=== PATIENT | female | born 1935 | race Caucasian/White ===

== ENCOUNTER 2021-06-29 15:31 | Inpatient (IN) | payer MEDICARE ==
[~2021-06-29] VITALS: Ht 142.2 cm; Wt 46.5 kg
[2021-06-29] MEDS ORDERED: ASPIRIN 81 MG CHEW (CHILDREN'S ASA) PO ONE (15:45)
--- NOTE | 2021-06-29 15:46 | ED Cardiac General ---
History of Present Illness General Stated Complaint: SENT OVER BY DR AGUIAR Source: patient Exam Limitations: no limitations History of Present Illness Date Seen by Provider: Jun 29, 2021 Time Seen by Provider: 15:43 Initial Comments To ER by private vehicle from Dr. Aguiar office. Patient saw [facility] 1 week ago and was noted to have an increasingly audible murmur. She was referred to Dr. Aguiar who evaluated her today and she was found to be in a complete heart block. She has no symptoms, she states she feels well no chest pain no shortness of breath and no fatigue. Her only medications are lisinopril 10 mg daily and baby aspirin. Timing/Duration: changing over time Severity: moderate Activities at Onset: none NTG SL SPRINKLER INSPECTOR: No ASA po SPRINKLER INSPECTOR: No Associated Systoms: No Chest Pain Allergies and Home Medications Allergies Coded Allergies: No Known Drug Allergies (Unverified , 06/10/16) Patient Home Medication List Home Medication List Reviewed: Yes Review of Systems Review of Systems Constitutional: see HPI EENTM: No Symptoms Reported Respiratory: No Symptoms Reported Cardiovascular: See HPI Gastrointestinal: No Symptoms Reported Genitourinary: No Symptoms Reported Musculoskeletal: no symptoms reported Skin: no symptoms reported Psychiatric/Neurological: No Symptoms Reported Endocrine: No Symptoms Reported Hematologic/Lymphatic: No Symptoms Reported Past Jvcdlsv-Aioylv-Zlvqsv Hx Seasonal Allergies Seasonal Allergies: No Past Medical History Reproductive Disorders: No Sexually Transmitted Disease: No Family Medical History No Pertinent Family Hx Physical Exam Vital Signs Vital Signs - First Documented 06/29/21 15:31 Temp 36.2 Pulse 41 Resp 16 B/P (MAP) 169/83 (111) Pulse Ox 97 O2 Delivery Room Air Capillary Refill : Height, Weight, BMI Height: 5'0.00" Weight: 86lbs. 10.0oz. 39.258579rr; 18.6 BMI Method:Stated General Appearance: No Apparent Distress, WD/WN, Thin, Other (Alert and oriented GCS 15 no distress. Heart rate 41 with a complete AV block. BP 169/83) Neck: Full Range of Motion, Normal Inspection Respiratory: No Accessory Muscle Use, No Respiratory Distress Cardiovascular: Normal Peripheral Pulses, Bradycardia, Systolic Murmur, Irregularly Irregular Gastrointestinal: Normal Bowel Sounds, Non Tender, Soft Extremity: Normal Capillary Refill, Normal Inspection Neurologic/Psychiatric: Alert, Oriented x3 Skin: Normal Color, Warm/Dry Progress/Results/Core Measures Results/Orders Lab Results Laboratory Tests Test 06/29/21 15:48 Range/Units White Blood Count 6.2 4.3-11.0 10^3/uL Red Blood Count 4.51 3.80-5.11 10^6/uL Hemoglobin 14.6 11.5-16.0 g/dL Hematocrit 44 35-52 % Mean Corpuscular Volume 98 80-99 fL Mean Corpuscular Hemoglobin 32 25-34 pg Mean Corpuscular Hemoglobin Concent 33 32-36 g/dL Red Cell Distribution Width 13.3 10.0-14.5 % Platelet Count 188 130-400 10^3/uL Mean Platelet Volume 11.0 9.0-12.2 fL Immature Granulocyte % (Auto) 0 % Neutrophils (%) (Auto) 65 42-75 % Lymphocytes (%) (Auto) 20 12-44 % Monocytes (%) (Auto) 11 0-12 % Eosinophils (%) (Auto) 4 0-10 % Basophils (%) (Auto) 0 0-10 % Neutrophils # (Auto) 4.1 1.8-7.8 10^3/uL Lymphocytes # (Auto) 1.2 1.0-4.0 10^3/uL Monocytes # (Auto) 0.7 0.0-1.0 10^3/uL Eosinophils # (Auto) 0.2 0.0-0.3 10^3/uL Basophils # (Auto) 0.0 0.0-0.1 10^3/uL Immature Granulocyte # (Auto) 0.0 0.0-0.1 10^3/uL Prothrombin Time 13.8 12.2-14.7 SEC INR Comment 1.0 0.8-1.4 Activated Partial Thromboplast Time 28 24-35 SEC Sodium Level 144 135-145 MMOL/L Potassium Level 4.1 3.6-5.0 MMOL/L Chloride Level 107 98-107 MMOL/L Carbon Dioxide Level 23 21-32 MMOL/L Anion Gap 14 5-14 MMOL/L Blood Urea Nitrogen 18 7-18 MG/DL Creatinine 1.22 0.60-1.30 MG/DL Estimat Glomerular Filtration Rate 42 BUN/Creatinine Ratio 15 Glucose Level 108 H 70-105 MG/DL Calcium Level 9.4 8.5-10.1 MG/DL Corrected Calcium 9.2 8.5-10.1 MG/DL Magnesium Level 2.0 1.6-2.4 MG/DL Total Bilirubin 0.9 0.1-1.0 MG/DL Aspartate Amino Transf (AST/SGOT) 21 5-34 U/L Alanine Aminotransferase (ALT/SGPT) 16 0-55 U/L Alkaline Phosphatase 70 40-136 U/L Myoglobin 57.6 10.0-92.0 NG/ML Troponin I < 0.028 <0.028 NG/ML Total Protein 7.1 6.4-8.2 GM/DL Albumin 4.2 3.2-4.5 GM/DL My Orders Orders - LIANA SALAS APRN Chest 1 View, Ap/Pa Only (06/29/21 15:33) Ekg Tracing (06/29/21 15:33) Aspirin Chewable Tablet (Baby Aspirin Ch (06/29/21 15:45) Cbc With Automated Diff (06/29/21 15:33) Magnesium (06/29/21 15:33) Comprehensive Metabolic Panel (06/29/21 15:33) Myoglobin Serum (06/29/21 15:33) Protime With Inr (06/29/21 15:33) Partial Thromboplastin Time (06/29/21 15:33) O2 (06/29/21 15:33) Monitor-Rhythm Ecg Trace Only (06/29/21 15:33) Lipid Panel (06/30/21 06:00) Ed Iv/Invasive Line Start (06/29/21 15:33) Troponin I (06/29/21 15:48) Medications Given in ED Current Medications Medications Dose Ordered Sig/Isak Route Start Time Stop Time Status Last Admin Dose Admin Aspirin 324 mg ONCE ONCE PO 06/29/21 15:45 06/29/21 15:46 DC 06/29/21 15:52 324 MG Vital Signs/I&O 06/29/21 15:31 Temp 36.2 Pulse 41 Resp 16 B/P (MAP) 169/83 (111) Pulse Ox 97 O2 Delivery Room Air Departure Communication (Admissions) Family Conversation 1645-complete heart block though she is hemodynamically stable mentating well with a pressure of 140s over 60s. No chest pain. Discussed with Dr. Aguiar will admit to his service ICU plan for pacemaker placement tomorrow with Dr. Wong. We will have her n.p.o. after midnight NAME: JOSEPH GABRIEL [facility] REC#: [id number] PT STATUS: REG ER : 1935 PHYSICIAN: LIANA SALAS APRN ADMIT DATE: 06/29/21/ER Draft Date of Exam:06/29/21 CHEST 1 VIEW, AP/PA ONLY INDICATION: Chest pain. COMPARISON: 06/11/2016. FINDINGS: There is cardiomegaly. Air trapping is seen bilaterally. There is no pneumothorax or consolidation. IMPRESSION: Cardiomegaly with background emphysema. No definite acute abnormality or adverse change is identified. Dictated on workstation # [id number] Dict: 06/29/21 1610 Trans: 06/29/21 1613 [id number] Interpreted by: THERESE MCNEIL MD Electronically signed by: Impression Primary Impression: Heart block AV complete Disposition: ADMITTED INPATIENT Condition: Stable Admissions Decision to Admit Reason: Admit from ER (General) Decision to Admit/Date: Jun 29, 2021 Time/Decision to Admit Time: 15:48 Departure-Patient Inst. Referrals: NO,LOCAL PHYSICIAN (PCP/Family) Primary Care Physician LIANA SALAS APRN Jun 29, 2021 15:46
[2021-06-29] MEDS ORDERED: LISI10TA25 PO (15:50)
[2021-06-29 16:06] LABS: BASOPHILS % (AUTO) 0 % (0-10); EOSINOPHILS # (AUTO) 0.2 10^3/uL (0.0-0.3); EOSINOPHILS % (AUTO) 4 % (0-10); HEMATOCRIT 44 % (35-52); HEMOGLOBIN 14.6 g/dL (11.5-16.0); LYMPHOCYTES # (AUTO) 1.2 10^3/uL (1.0-4.0); LYMPHOCYTES % (AUTO) 20 % (12-44); MEAN CORPUSCULAR HEMOGLOBIN 32 pg (25-34); MEAN CORPUSCULAR HGB CONC 33 g/dL (32-36); MEAN CORPUSCULAR VOLUME 98 fL (80-99); MONOCYTES # (AUTO) 0.7 10^3/uL (0.0-1.0); MONOCYTES % (AUTO) 11 % (0-12); NEUTROPHILS # (AUTO) 4.1 10^3/uL (1.8-7.8); NEUTROPHILS % (AUTO) 65 % (42-75); PLATELET COUNT 188 10^3/uL (130-400); WHITE BLOOD COUNT 6.2 10^3/uL (4.3-11.0)
[2021-06-29 16:11] LABS: ALBUMIN 4.2 GM/DL (3.2-4.5)
[2021-06-29 16:12] LABS: CHLORIDE 107 MMOL/L (98-107); POTASSIUM 4.1 MMOL/L (3.6-5.0); SODIUM 144 MMOL/L (135-145)
[2021-06-29 16:13] LABS: CALCIUM 9.4 MG/DL (8.5-10.1)
--- NOTE | 2021-06-29 16:13 | Diagnostic Imaging Report ---
INDICATION: Chest pain. COMPARISON: 06/11/2016. FINDINGS: There is cardiomegaly. Air trapping is seen bilaterally. There is no pneumothorax or consolidation. IMPRESSION: Cardiomegaly with background emphysema. No definite acute abnormality or adverse change is identified. Dictated by: Dictated on workstation # [id number]
[2021-06-29 16:14] LABS: GLUCOSE 108 MG/DL (70-105); TOTAL PROTEIN 7.1 GM/DL (6.4-8.2)
[2021-06-29 16:15] LABS: CARBON DIOXIDE 23 MMOL/L (21-32)
[2021-06-29 16:16] LABS: BILIRUBIN,TOTAL 0.9 MG/DL (0.1-1.0); PROTHROMBIN TIME PATIENT 13.8 SEC (12.2-14.7)
[2021-06-29 16:17] LABS: ALKALINE PHOSPHATASE 70 U/L (40-136)
[2021-06-29 16:18] LABS: CREATININE SERUM 1.22 MG/DL (0.60-1.30); GFR ESTIMATED 42
[2021-06-29 16:19] LABS: BUN/CREATININE RATIO 15
[2021-06-29 16:20] LABS: ALANINE AMINOTRANSFERASE 16 U/L (0-55)
--- NOTE | 2021-06-29 17:20 | History & Physicial ---
History of Present Illness History of Present Illness Reason for visit/HPI She is a pleasant 85-year-old female with history of hypertension and aortic stenosis. She recently saw her primary provider for a routine follow-up visit and they felt her heart murmur was louder. As such, she was referred to my office for further evaluation. I just saw her in the office today and as part of an outpatient cardiology consultation, she underwent an electrocardiogram. This showed sinus rhythm with an atrial rate of approximately 80 bpm with complete heart block with a ventricular rate of approximately 40 bpm. As such, I sent her to the emergency room for further evaluation and for admission to undergo permanent pacemaker implantation tomorrow. She denies any significant cardiac complaints. Specifically, she denies chest discomfort, dyspnea, paro xysmal nocturnal dyspnea, orthopnea, palpitations, lightheadedness, syncope, or ankle edema. Just the other day she helped her twin sister mow their lawn. They use a push mower and this takes about 30 minutes to complete. She did not have any cardiac symptoms while doing this. She is a lifelong non-smoker. Date of Admission Jun 29, 2021 at 16:53 Date Seen by a Provider: Jun 29, 2021 Time Seen by a Provider: 17:14 I consulted on this patient on 06/29/21 17:14 Attending Physician Humberto Aguiar Jr, MD Admitting Physician No,Local Physician Consult Allergies and Home Medications Allergies Coded Allergies: No Known Drug Allergies (Unverified , 06/10/16) Patient Home Medication List Home Medication List Reviewed: Yes Past Sghvqbq-Xkemzw-Vyadhl Hx Patient Social History Employed/Student: retired Smoking Status: Never a Smoker Recent Hopitalizations: No Alcohol Use?: No Seasonal Allergies Seasonal Allergies: No Reproductive System Hx Reproductive Disorders: No Sexually Transmitted Disease: No Family Medical History Significant Family History: No Pertinent Family Hx Review of Systems Constitutional: no symptoms reported, see HPI Review of 10 organ systems is as per the history of present illness, otherwise negative. Physical Exam Vital Signs Vital Signs - First Documented 06/29/21 15:31 Temp 36.2 Pulse 41 Resp 16 B/P (MAP) 169/83 (111) Pulse Ox 97 O2 Delivery Room Air Capillary Refill : Less Than 3 Seconds Height, Weight, BMI Height: 5'0.00" Weight: 86lbs. 10.0oz. 39.252829oe; 20.00 BMI Method:Stated General Appearance: No Apparent Distress HEENT: Normal ENT Inspection Neck: Normal Inspection Respiratory: Lungs Clear Cardiovascular: Bradycardia, Systolic Murmur Gastrointestinal: Normal Bowel Sounds Rectal: Deferred Neurologic/Psychiatric: Alert, Oriented x3 Skin: Normal Color Comments General: Alert. No acute distress. Well nourished and appears stated age. Eye: Extraocular movements are intact. Conjunctivae are clear. There are no xanthelasma. HENT: Normocephalic. Atraumatic. Carotid pulsations 2/2 with bilateral radiated murmur. Neck: Jugular venous pressure does not appear elevated. No thyromegaly appreciated. Respiratory: Lungs are clear to auscultation. Respirations are non-labored. Breath sounds are equal. Symmetrical chest wall expansion. Cardiovascular: Rate of cardia. Regular rhythm. 3/6 systolic ejection murmur. No gallop. Point of maximal impulse is not appear displaced. Good pulses equal in all extremities. No edema. Gastrointestinal: Soft. Normal bowel sounds. Skin: Skin turgor is normal. There is no pallor. Musculoskeletal: No kyphosis or scoliosis appreciated. Neurologic: Alert and oriented to person, place, time. Cranial nerves 3-12 appear grossly intact. The patient has good motor tone strength in the upper and lower extremities bilaterally. Psychiatric: Cooperative. Appropriate mood & affect. Assessment/Plan Assessment and Plan Problems: (1) Heart block AV complete Status: Acute Assessment & Plan: She is in complete heart block of unknown duration. I suspect this may have been going on for a while. Despite this, this is an unstable rhythm. As such, I recommend permanent pacemaker implantation. This will be performed by my partner, Dr. Nj, early tomorrow afternoon. (2) Aortic stenosis Assessment & Plan: She had moderate aortic stenosis by echocardiogram in 2016. This is most likely progressed. I will obtain a follow-up echocardiogram in the morning. (3) Primary hypertension Assessment & Plan: Resume lisinopril. Admission Diagnosis Complete, third-degree AV heart block. Admission Status: Inpatient Order (span 2 midnights) Reason for Inpatient Admission: Complete heart block requiring permanent pacemaker implantation. Clinical Quality Measures AMI/AHF: ASA po Prior to arrival: No HUMBERTO AGUIAR JR, MD Jun 29, 2021 17:20
[2021-06-29 17:30] VITALS: BP 144/74
[2021-06-29] MEDS ORDERED: ACETAMINOPHEN 325 MG TABLET PO PRN (17:30)
--- NOTE | 2021-06-29 17:36 | Tele-ICU Consult ---
History of Present Illness History of Present Illness Date Seen by Provider: Jun 29, 2021 Time Seen by Provider: 17:00 Date of Admission This virtual visit was conducted using real time audio/video. Thank you for asking us to see this patient for Critical Care services. HPC: Recent events: Admitted through ER withh asymptomatic CHB. PMH: HTN SH: smoking history: N FH: Non-contributory ROS: negative PE: Thin, undistressed, conversational. VSS HR 40 CHB BP 169/83 RR 16 O2 sat 94- 97% on RA HEENT: No obvious masses, adenopathy or JVD. Chest: clear to auscultation. CV: Irreg S1 S2 murmur: systolic. Abd: Non-tender. Bowel sounds Y. : Unremarkable. Hinojosa N. SALES LEAD/psychiatric: Alert and oriented, grossly intact. No obvious focal findings. Extremities: No edema. Capillary refill < 3 seconds. Skin: unremarkable. Results: labs unremarkable. CXR clear. A/P: CHB: per Cards. Monitor in ICU for now. Available chart/ vitals / labs / Images reviewed. Video assessment done using teleICU camera, rest of exam as per RN. Critical Care: critically ill patient. Monitor BP Discussed with RN Aracelis. Asked RN to reach out to eICU if any questions or concerns later. Time spent with patient/coordination of care with other health professionals (mins): 15 Allergies and Home Medications Allergies Coded Allergies: No Known Drug Allergies (Unverified , 06/10/16) Past Medical/Social/Family Hx Patient Social History Tobacco Use?: No Smoking Status: Never a Smoker Substance use?: No Alcohol Use?: No Current Status Advance Directives: No Primary Language: Australian Preferred Spoken Language: Australian Review of Systems Constitutional: no symptoms reported (See free text.) EENTM: see HPI Respiratory: see HPI Cardiovascular: see HPI Gastrointestinal: see HPI Genitourinary: see HPI Musculoskeletal: see HPI Skin: see HPI Psychiatric/Neurological: See HPI All Other Systems Reviewed Negative Unless Noted: Yes Sepsis Event Evaluation Height, Weight, BMI Height: 5'0.00" Weight: 86lbs. 10.0oz. 39.552959mu; 20.00 BMI Method:Stated Exam Exam Patient acknowledged, consented, and participated in this virtual visit which was conducted using real time audio/video Vital Signs Date Time Temp Pulse Resp B/P (MAP) Pulse Ox O2 Delivery O2 Flow Rate FiO2 06/29/21 15:31 36.2 41 16 169/83 (111) 97 Room Air Height & Weight Height: 5'0.00" Weight: 86lbs. 10.0oz. 39.818042rz; 20.00 BMI Method:Stated General Appearance: No Apparent Distress, WD/WN, Thin, Other (Alert and oriented GCS 15 no distress. Heart rate 41 with a complete AV block. BP 169/83) Neck: Full Range of Motion, Normal Inspection Respiratory: No Accessory Muscle Use, No Respiratory Distress Cardiovascular: Normal Peripheral Pulses, Bradycardia, Systolic Murmur, Irregularly Irregular Capillary Refill: Less Than 3 Seconds Peripheral Pulses: 1+ Dorsalis Pedis (R) (see free text.), 1+ Left Dors-Pedis (L) Extremity: Normal Capillary Refill, Normal Inspection Neurologic/Psychiatric: Alert, Oriented x3 Skin: Normal Color, Warm/Dry Results Lab Laboratory Tests 06/29/21 15:48 Assessment/Plan Assessment/Plan See free text Critical Care: Critically Ill Patient Time spent on discussion(mins): 0 COLLEEN RODRIGUEZ MD Jun 29, 2021 17:36
[2021-06-29] MEDS: LACTATED RINGERS 1,000 ML IV SCH (18:52)
[2021-06-30 03:53] LABS: TRIGLYCERIDES 65 MG/DL (<150); VLDL CHOLESTEROL 13 MG/DL (5-40)
[2021-06-30 03:58] LABS: CHOLESTEROL 157 MG/DL (< 200); HDL CHOLESTEROL 45 MG/DL (40-60)
[2021-06-30 04:39] LABS: POTASSIUM 4.2 MMOL/L (3.6-5.0)
[2021-06-30 04:40] LABS: CALCIUM 8.5 MG/DL (8.5-10.1)
[2021-06-30 04:44] LABS: CREATININE SERUM 1.17 MG/DL (0.60-1.30); PHOSPHORUS 3.4 MG/DL (2.3-4.7)
[2021-06-30 04:46] LABS: BASOPHILS % (AUTO) 0 % (0-10); EOSINOPHILS # (AUTO) 0.2 10^3/uL (0.0-0.3); EOSINOPHILS % (AUTO) 4 % (0-10); HEMATOCRIT 41 % (35-52); HEMOGLOBIN 13.3 g/dL (11.5-16.0); LYMPHOCYTES # (AUTO) 0.9 10^3/uL (1.0-4.0); LYMPHOCYTES % (AUTO) 19 % (12-44); MEAN CORPUSCULAR HEMOGLOBIN 33 pg (25-34); MEAN CORPUSCULAR HGB CONC 33 g/dL (32-36); MEAN CORPUSCULAR VOLUME 102 fL (80-99); MEAN PLATELET VOLUME 11.5 fL (9.0-12.2); MONOCYTES # (AUTO) 0.6 10^3/uL (0.0-1.0); MONOCYTES % (AUTO) 12 % (0-12); NEUTROPHILS % (AUTO) 64 % (42-75); PLATELET COUNT 145 10^3/uL (130-400); WHITE BLOOD COUNT 4.7 10^3/uL (4.3-11.0)
[2021-06-30 04:47] LABS: MAGNESIUM 1.9 MG/DL (1.6-2.4)
[2021-06-30] MEDS ORDERED: POTASSIUM CL 10MEQ/50ML IVPB 50 ML IV SCH (06:00)
[2021-06-30] MEDS: KCL 20 MEQ TAB (K-DUR) PO SCH (06:03)
[2021-06-30] MEDS: MAGNESIUM 1 GM/100 ML IVPB 100 ML IV SCH (06:03)
[2021-06-30] MEDS: ASPIRIN E.C. 81 MG (ECOTRIN) TAB PO SCH (08:38)
[2021-06-30] MEDS: lisINopril 10 MG (PRINIVIL) TABLET PO SCH (08:38)
[2021-06-30] MEDS ORDERED: BETA1TAB15 PO (09:43)
[2021-06-30] MEDS ORDERED: ASPI-1238 PO (09:43)
--- NOTE | 2021-06-30 10:29 | Tele-ICU Progress Note ---
Subjective Date Seen by a Provider: Jun 30, 2021 Time Seen by a Provider: 10:15 Subjective/Events-last exam This virtual visit was conducted using real time audio/video. Thank you for asking us to see this patient for Critical Care services. HPC: Recent events: Admitted through ER with asymptomatic CHB, no problems overnight.. PMH: HTN, Ao sten. SH: smoking history: N FH: Non-contributory ROS: negative PE: Thin, undistressed, conversational. VSS HR 30-40 CHB HEENT: No obvious masses, adenopathy or JVD. Chest: clear to auscultation. CV: Irreg S1 S2 murmur: systolic. Abd: Non-tender. Bowel sounds Y. : Unremarkable. Hinojosa N. TUBING MACHINE OPERATOR/psychiatric: Alert and oriented, grossly intact. No obvious focal findings. Extremities: No edema. Capillary refill < 3 seconds. Skin: unremarkable. Results: labs unremarkable. CXR clear. A/P: CHB: per Cards. Monitor in ICU for now. Pacemaker this PM. Available chart/ vitals / labs / Images reviewed. Video assessment done using teleICU camera, rest of exam as per RN. Critical Care:Monitor BP. Discussed with STEVIE Galvan. Asked RN to reach out to eICU if any questions or concerns later. Time spent with patient/coordination of care with other health professionals (mins): 10 Sepsis Event Evaluation Height, Weight, BMI Height: 5'0.00" Weight: 86lbs. 10.0oz. 39.328354cz; 20.67 BMI Method:Stated Exam Exam Patient acknowledged, consented, and participated in this virtual visit which was conducted using real time audio/video Vital Signs Date Time Temp Pulse Resp B/P (MAP) Pulse Ox O2 Delivery O2 Flow Rate FiO2 06/30/21 09:00 40 24 145/58 (87) 95 Room Air 06/30/21 08:22 97 Room Air 06/30/21 08:00 38 31 96 Room Air 06/30/21 07:15 36.6 37 24 148/62 (90) 96 Room Air 06/30/21 07:00 37 06/30/21 06:00 35 19 148/61 (90) 94 Room Air 06/30/21 05:00 36 20 97 Room Air 06/30/21 04:00 33 15 143/58 (86) 92 Room Air 06/30/21 04:00 36.3 06/30/21 04:00 97 Room Air 06/30/21 03:00 37 16 130/63 (85) 95 Room Air 06/30/21 02:00 35 16 97 Room Air 06/30/21 01:00 34 21 150/61 (90) 95 Room Air 06/30/21 01:00 34 06/30/21 00:00 35 18 155/62 (93) 96 Room Air 06/30/21 00:00 36.4 06/30/21 00:00 97 Room Air 06/29/21 23:00 36 18 154/67 (96) 96 Room Air 06/29/21 22:00 37 15 149/64 (92) 96 Room Air 06/29/21 21:00 38 18 144/66 (92) 94 Room Air 06/29/21 20:00 97 Room Air 06/29/21 20:00 36.4 06/29/21 20:00 40 18 141/61 (87) 97 Room Air 06/29/21 19:47 36.6 06/29/21 19:00 38 06/29/21 19:00 38 16 168/71 (103) 99 Room Air 06/29/21 18:00 38 14 164/68 (100) 98 Room Air 06/29/21 18:00 97 Room Air 06/29/21 17:30 96 16 144/74 97 Room Air 06/29/21 15:31 36.2 41 16 169/83 (111) 97 Room Air I & O 06/30/21 07:00 Intake Total 300 ml Balance 300 ml Height & Weight Height: 5'0.00" Weight: 86lbs. 10.0oz. 39.885883ea; 20.67 BMI Method:Stated General Appearance: No Apparent Distress, WD/WN, Thin, Other (Alert and oriented GCS 15 no distress. Heart rate 41 with a complete AV block. BP 169/83) HEENT: Normal ENT Inspection Neck: Full Range of Motion, Normal Inspection Respiratory: No Accessory Muscle Use, No Respiratory Distress Cardiovascular: Normal Peripheral Pulses, Bradycardia, Systolic Murmur, Irregularly Irregular Capillary Refill: Less Than 3 Seconds Peripheral Pulses: 1+ Dorsalis Pedis (R) (see free text.), 1+ Left Dors-Pedis (L) Extremity: Normal Capillary Refill, Normal Inspection Neurologic/Psychiatric: Alert, Oriented x3 Skin: Normal Color, Warm/Dry Results Lab Laboratory Tests 06/29/21 15:48 06/30/21 02:55 Assessment/Plan Assessment/Plan See free text. Critical Care: Critically Ill Patient Time spent on discussion(mins): 0 COLLEEN RODRIGUEZ MD Jun 30, 2021 10:29
[2021-06-30] MEDS: LACTATED RINGERS 1,000 ML IV SCH (13:52)
[2021-06-30] MEDS ORDERED: HEParin (CATH LAB) 1,000 ML IV ONE (14:28)
[2021-06-30] MEDS ORDERED: ceFAZolin INJECTION 1,000 MG ONE (14:28)
[2021-06-30] MEDS ORDERED: LIDOCAINE 1% INJ 20 ML 20 ML VIAL ONE (14:28)
[2021-06-30] MEDS ORDERED: NS IV 1000 ML 1,000 ML ONE (14:28)
[2021-06-30] MEDS ORDERED: MIDAZOLAM 5 MG/5 ML (VERSED) VIAL ONE (14:53)
[2021-06-30] MEDS ORDERED: fentaNYL INJ 100 MCG/2 ML AMP ONE (14:53)
[2021-06-30] MEDS ORDERED: NS IV 1000 ML 1,000 ML IV SCH (16:45)
[2021-06-30] MEDS ORDERED: PATIENT MAY USE OWN MEDS, ALL PO SCH (16:45)
[2021-06-30] MEDS ORDERED: ACETAMINOPHEN 325 MG TABLET PO PRN (16:45)
[2021-06-30] MEDS ORDERED: CEFU250T80 PO (16:47)
--- NOTE | 2021-06-30 16:54 | Discharge Inst-Post Device ---
Discharge Inst-Post Device Follow up/Plan F/u at Dr Nj's for wound check on 07/03/21 Heart Healthy Diet Do not lift arm on side of device placement above head for 4 weeks. Do not push and pull heavy objects for 4 weeks. Activity as tolerated. No driving for one week. Leave dressing on until follow up at the office. JULIO NJ MD FACP FAC CCDS Jun 30, 2021 16:54
--- NOTE | 2021-06-30 18:03 | Diagnostic Imaging Report ---
CLINICAL INDICATION: Patient post cardiac device placement. EXAM: X-ray chest, upright AP and lateral views in sitting position. COMPARISON: Chest x-ray dated 06/29/2021. FINDINGS: Cardiomegaly is again seen. There is pulmonary vascular congestion which has progressed in the interim or may be related to low lung volumes and atelectasis. There is slight decreased lung volumes seen with bibasilar atelectasis. There is no pneumothorax or pleural effusion. Interval placement of cardiac pacemaker with two leads projecting over the heart which appears in good position. The remainder of this exam shows no significant interval change compared to the prior study of comparison. IMPRESSION: 1: There is interval placement of cardiac pacemaker leads in good position, as visualized. There is no pneumothorax. 2: There is cardiomegaly with mild pulmonary vascular congestion which has progressed. The appearance of pulmonary vascular prominence may be due to low lung volumes and x-ray obtained in sitting position. 3: There is mild bibasilar atelectasis. Dictated by: Dictated on workstation # [id number]
[2021-06-30] MEDS: ceFAZolin INJECTION 1,000 MG in WATER (STERILE) FOR INJECTION 10 ML IV SCH (22:11)
--- NOTE | 2021-07-01 01:29 | OPERATIVE REPORT ---
DATE OF SERVICE: 06/30/2021 PREOPERATIVE DIAGNOSIS: Complete heart block. POSTOPERATIVE DIAGNOSIS: Complete heart block. PROCEDURE: Dual chamber pacemaker implantation. INDICATIONS: The patient is an 85-year-old lady, who was admitted with complete heart block in the absence of any medications that might have any effect on the atrioventricular node. Dual chamber pacemaker implantation was carried out after having obtained an informed consent. DESCRIPTION OF PROCEDURE: She was brought to the cardiac catheterization laboratory. The left prepectoral area was prepared and draped in the usual sterile fashion. Lidocaine 1% was used for local anesthesia. Modified Seldinger technique was advanced to advance two guidewires into the left subclavian vein and the tips were placed in the right atrium. Sharp and blunt dissection was used to make a pacemaker pocket with good hemostasis was assured. The guidewires were used to advance sheaths and the wires were removed. The sheaths were used to advance leads and the sheaths were removed. Active fixation leads were used. Fluoroscopy was used to guide lead placement. The leads were sutured to the prepectoral fascia using 0 Ethibond and sleeves. The tip of the right ventricular lead was placed at the right ventricular apex/distal septum. The right atrial lead was placed at the right atrial appendage. Good impedance and good capture thresholds were obtained. The pocket was thoroughly irrigated with an antibiotic solution. The leads were attached to a dual chamber pacemaker and the pacemaker and leads were placed in the pocket and the pocket closed in 2 layers using 3.0 Vicryl. P waves were measured at 3.4 millivolts per the device. Atrial lead impedance was 460 ohms. Atrial capture threshold was 1.25 volts at 0.4 milliseconds. R waves could not be measured due to lack of an adequate underlying [place] rhythm. The ventricular lead impedance was 490 ohms. Right ventricular capture threshold was 0.87 at 0.4 milliseconds. The patient tolerated the procedure well. The pacemaker has been placed in the DDDR mode with a lower rate of 60 beats per minute and an upper tracking rate of 130 beats per minute. Job ID: [id number] DocumentID: [id number] Dictated Date: 06/30/2021 16:38:10 Ecommerce Marketing Manager Date: 07/01/2021 01:28:25 Dictated By: JULIO SU MD, MA, FACP, FACC, MTDD
[2021-07-01] MEDS: MAGNESIUM 1 GM/100 ML IVPB 100 ML IV SCH (04:43)
[2021-07-01] MEDS: KCL 20 MEQ TAB (K-DUR) PO SCH (04:43)
[2021-07-01] MEDS: ceFAZolin INJECTION 1,000 MG in WATER (STERILE) FOR INJECTION 10 ML IV SCH (06:50)
[2021-07-01] MEDS: lisINopril 10 MG (PRINIVIL) TABLET PO SCH (08:27)
[2021-07-01] MEDS: ASPIRIN E.C. 81 MG (ECOTRIN) TAB PO SCH (08:27)
[2021-07-01] MEDS ORDERED: ASPI-1238 PO (09:04)
--- NOTE | 2021-07-01 09:14 | Discharge Summary ---
Diagnosis/Chief Complaint Date of Admission Jun 29, 2021 at 16:53 Date of Discharge 07/01/2021 Discharge Date: Jul 01, 2021 Discharge Time: 10:00 Admission Diagnosis Admission Diagnosis Complete third-degree AV heart block. Discharge Diagnosis 1. Complete third-degree AV heart block. 2. Aortic stenosis. 3. Primary hypertension. 4. Chronic kidney disease, stage III. Reason Hospital Visit She is a pleasant 85-year-old female with history of hypertension and aortic stenosis. She recently saw her primary provider for a routine follow-up visit and they felt her heart murmur was louder. As such, she was referred to my office for further evaluation. I just saw her in the office today and as part of an outpatient cardiology consultation, she underwent an electrocardiogram. This showed sinus rhythm with an atrial rate of approximately 80 bpm with complete heart block with a ventricular rate of approximately 40 bpm. As such, I sent her to the emergency room for further evaluation and for admission to undergo permanent pacemaker implantation tomorrow. She denies any significant cardiac complaints. Specifically, she denies chest discomfort, dyspnea, paroxysmal nocturnal dyspnea, orthopnea, palpitations, lightheadedness, syncope, or ankle edema. Just the other day she helped her twin sister mow their lawn. They use a push mower and this takes about 30 minutes to complete. She did not have any cardiac symptoms while doing this. She is a lifelong non-smoker. Discharge Summary Hospital Course Was the Problem List Reviewed?: Yes Hospital Course See discussion below. Labs Laboratory Tests 06/29/21 15:48: Glucose Level 108H 06/30/21 02:55: Mean Corpuscular Volume 102H, Lymphocytes # (Auto) 0.9L, Chloride Level 110H Procedures Permanent pacemaker implantation. Discharge Physical Examination Allergies: Coded Allergies: No Known Drug Allergies (Unverified , 06/10/16) Vitals & I&Os Vital Signs Date Time Temp Pulse Resp B/P (MAP) Pulse Ox O2 Delivery O2 Flow Rate FiO2 07/01/21 08:00 97 Room Air 07/01/21 07:00 63 07/01/21 04:00 17 124/67 (86) 07/01/21 00:00 36.6 General Appearance: Alert, Oriented X3, Cooperative HEENT: Atraumatic, EOMI Respiratory: Clear to Auscultation, Normal Air Movement Cardiovascular: Regular Rate, Normal S1, Normal S2, Other (3/6 systolic ejection murmur.) Abdominal: Normal Bowel Sounds, Soft Extremities: No Clubbing, No Cyanosis Skin: No Rashes, No Breakdown Neuro: Normal Speech, Strength at 5/5 X4 Ext, Cranial Nerves 3-12 NL Psych/Mental Status: Mental Status NL, Mood NL Discussion & Recommendations On June 29, 2021 the patient presented to my outpatient office for evaluation due to worsening heart murmur. She knew she had a heart murmur but was not aware of why. During her evaluation in my office we performed an electrocardiogram that showed third-degree AV block. As such, she was sent to the hospital for admission to undergo permanent pacemaker implantation. On A ug2020 she underwent dual-chamber pacemaker implantation. The postoperative chest x-ray did not show any evidence of pneumothorax. The following day, a pacemaker check was performed which was unremarkable. As such, the patient was discharged home. She did also undergo an echocardiogram that showed severe aortic stenosis and this will need to be addressed at a later poin t in time. Over 30 minutes was spent in direct [id number] contact with the patient and her sister in preparing this discharge summary. Certain portions of this document may have been dictated utilizing voice recognition technology. Inherent to this technology, typographical and grammatical errors may exist. As much as I am diligent to identify and correct these mistakes, some errors may remain in the document. Discharge Home Medications Reviewed and agree with Discharge Medication list on patient's Discharge Instruction sheet Condition at Discharge Good. Improved. Instructions to Patient/Family Please see electronic discharge instructions given to patient. Clinical Quality Measures AMI/AHF: ASA po Prior to arrival: MAURO Bocanegra JR, MD Jul 01, 2021 09:14
--- NOTE | 2021-07-01 09:21 | Tele-ICU Progress Note ---
Progress Note video rounds completed 85 y/o admitted with complete heart block Pacer placed yesterday HR 73 paced BP: 150/77 PLAN: being DC today Focused Exam Height, Weight, BMI Height: 5'0.00" Weight: 86lbs. 10.0oz. [id number]; 20.67 BMI Method:Stated LAITH BAUTISTA MD Jul 01, 2021 09:21
== END 2021-07-01 10:00 | disposition home or self-care (01) | DRG 244 ==
LOC: EDUNIT# 15:31 → ER 15:33 → ICU 16:53 → EDLOC 16:53
PROVIDERS: ADMIT Internal Medicine Cardiovascular Disease; ATTEND Internal Medicine Cardiovascular Disease
PROC: 0JH606Z Insertion of Pacemaker, Dual Chamber into Chest Subcutaneous Tissue and Fascia, Open Approach (ICD-10-PCS; principal; 2021-06-30)
PROC: 02HK3JZ Insertion of Pacemaker Lead into Right Ventricle, Percutaneous Approach (ICD-10-PCS; 2021-06-30)
PROC: 02H63JZ Insertion of Pacemaker Lead into Right Atrium, Percutaneous Approach (ICD-10-PCS; 2021-06-30)
DX: I44.2 Atrioventricular block, complete (principal); I12.9 Hypertensive chronic kidney disease with stage 1 through stage 4 chronic kidney disease, or unspecified chronic kidney disease; N18.30 Chronic kidney disease, stage 3 unspecified; I08.0 Rheumatic disorders of both mitral and aortic valves; Z79.82 Long term (current) use of aspirin; Z79.899 Other long term (current) drug therapy
CPT/HCPCS: 33208; 36415; 71045; 71046; 80048; 80053; 80061; 83735; 83874; 84100; 84484; 85025; 85610; 85730; 87081; 93005; 93041; 93306

== ENCOUNTER → 2021-12-14 | Outpatient (CLI) | payer MEDICARE ==
[~2021-12-14] VITALS: Ht 145 cm; Wt 44.0 kg
[~2021-12-14] MED LIST: ASPI-1238 PO; BETA1TAB15 PO; CATHETER FLUSH 10 ML SYR IV PRN; CEFU250T80 PO; LISI10TA25 PO; REGADENOSON 0.4 MG/5 ML SYR (LEXISCAN) IV ONE
[2021-12-14 09:06] VITALS: BP 153/77
--- NOTE | 2021-12-14 11:21 | NUCLEAR STRESS TEST ---
REGADENOSON NUCLEAR STRESS Date of procedure: 12/14/2021. Primary care provider: No local physician. Admitting physician: Humberto Aguiar Jr., MD. INDICATION: Abnormal electrocardiogram. BASELINE ELECTROCARDIOGRAM: Sinus rhythm with dual-chamber pacemaker with atrial sensing and ventricular pacing. STRESS TEST PROCEDURE: The patient was administered 0.4 mg of intravenous Regadenoson. The resting heart rate was 83 bpm and the peak heart rate was 128 bpm. The resting blood pressure was 153/77 mmHg and the minimum blood pressure was 153/77 mmHg. This represents a normal heart rate and a blunted blood pre ssure response to Regadenoson. The test was stopped due to the protocol. There was no chest discomfort during the test. There were no arrhythmias during the test. The stress electrocardiogram was indeterminate due to the paced rhythm. NUCLEAR PROCEDURE: The patient was administered 10.1 mCi of intravenous technetium 99m Tetrofosmin at rest for the rest images. The patient was subsequently administered 27.8 mCi of intravenous technetium 99m Tetrofosmin at peak stress for the stress images. Following an appropriate wait after each injection, imaging was obtained. The images were subsequently processed and reformatted in the usual views. Gated imaging was obtained. The image quality was adequate with a mild degree of gastrointestinal attenuation artifact. CT attenuation correction was used as a adjunct to standard imaging. Both the corrected and uncorrected images were reviewed for interpretation. NUCLEAR RESULTS: There was a small, moderate intensity, partially reversible apical defect with a small amount of inducible ischemia with a summed stress score of 6 and a summed difference score of 2. There was normal left ventricu lar chamber size with an end-diastolic volume of 45 mL and an end-systolic volume of 10 mL. There was no evidence of transient ischemic dilatation. The TID ratio was 1.02. There was paradoxical septal motion consistent with ventricular pacing and normal left ventricular systolic function with a calculated ejection fraction of 77%. IMPRESSION: 1. Normal heart rate and a blunted blood pressure response to regadenoson. 2. There was no chest discomfort or arrhythmias during the test. 3. The stress electrocardiogram was indeterminate due to the paced rhythm. 4. There was a small, moderate intensity, partially reversible apical defect with a small amount of inducible ischemia with a summed stress score of 6 and a summed difference score of 2. 5. There was paradoxical septal motion consistent with ventricular pacing and normal left ventricular systolic function with a calculated ejection fraction of 77%. 6. This is an abnormal result although represents an overall low risk for future coronary ischemic events. Certain portions of this document may have been dictated utilizing voice recognition technology. Inherent to this technology, typographical and grammatical errors may exist. As much as I am diligent to identify and correct these mistakes, some errors may remain in the document. HUMBERTO AGUIAR JR, MD Dec 14, 2021 11:21
== END ==
LOC: CARD 07:45
PROVIDERS: ATTEND Internal Medicine Cardiovascular Disease
DX: R94.31 Abnormal electrocardiogram [ECG] [EKG] (principal)
CPT/HCPCS: 78452; 93017; A9502

== ENCOUNTER → 2022-01-30 | Outpatient (CLI) | payer MEDICARE ==
[~2022-01-30] MED LIST changes: -CATHETER FLUSH 10 ML SYR IV PRN; -REGADENOSON 0.4 MG/5 ML SYR (LEXISCAN) IV ONE
== END ==
LOC: CARD 08:30
PROVIDERS: ATTEND Internal Medicine Cardiovascular Disease
DX: I08.0 Rheumatic disorders of both mitral and aortic valves (principal)
CPT/HCPCS: 93306

== ENCOUNTER → 2022-02-15 | Outpatient (CLI) | payer MEDICARE ==
[2022-02-15 10:27] VITALS: BP 187/91
--- NOTE | 2022-02-15 17:56 | Cardiology Stress Test Report ---
Stress Test Report Date of Procedure/Referring: Date of Procedure: Feb 15, 2022 PCP Humberto Aguiar Jr, MD Admitting Physician No,Local Physician Indications: Aortic stenosis Baseline Heart Rate: 69 Baseline Blood Pressure: Blood Pressure Systolic: 187 Blood Pressure Diastolic: 91 Baseline EKG: Baseline EKG: Sinus rhythm with dual-chamber pacemaker with A sensing and V pacing. Summary/Conclusion: PROCEDURE: The patient was exercised for a total of 6 minutes and 38 seconds of the modified John protocol achieving a maximum met level of 4.3. The resting heart rate was 68 bpm and the peak heart rate was 121 bpm which represents 88% of the maximum predicted heart rate. The resting blood pressure was 187/91 mmHg and the peak blood pressure was 200/100 mmHg with resting hypertension. This represents a normal heart rate and a hypertensive blood pressure response to exercise. The test was stopped due to fatigue. There was no chest discomfort during the test. There were occasional, isolated premature ventricular comple xes during the test. The stress electrocardiogram was indeterminant due to the paced rhythm. The patient exhibited good exercise capacity for age. IMPRESSION: 1. Normal heart rate and a hypertensive blood pressure response to exercise with resting hypertension. 2. There was no chest discomfort during the test. 3. There were isolated premature ventricular complexes during the test. 4. The stress electrocardiogram was indeterminate due to the paced rhythm. 5. The patient exhibited good exercise capacity for age at 6 minutes and 38 seconds of the modified John protocol. Certain portions of this document may have been dictated utilizing voice recognition technology. Inherent to this technology, typographical and grammatical errors may exist. As much as I am diligent to identify and correct these mistakes, some errors may remain in the document. HUMBERTO AGUIAR JR, MD Feb 15, 2022 17:56
== END ==
LOC: CARD 10:30
PROVIDERS: ATTEND Internal Medicine Cardiovascular Disease
DX: I35.0 Nonrheumatic aortic (valve) stenosis (principal)
CPT/HCPCS: 93017

== ENCOUNTER 2023-01-15 10:00 | Day surgery (SDC) | payer MEDICARE ==
[~2023-01-15] VITALS: Ht 142.2 cm; Wt 44.0 kg
[2023-01-15] VITALS (10 sets, daily range): BP systolic 135–181; BP diastolic 67–89
[2023-01-15 08:26] LABS: HEMATOCRIT 45 % (35-52); HEMOGLOBIN 15.4 g/dL (11.5-16.0); MEAN CORPUSCULAR HEMOGLOBIN 33 pg (25-34); MEAN CORPUSCULAR HGB CONC 34 g/dL (32-36); MEAN CORPUSCULAR VOLUME 96 fL (80-99); MEAN PLATELET VOLUME 9.4 fL (9.0-12.2); PLATELET COUNT 170 10^3/uL (130-400); WHITE BLOOD COUNT 5.2 10^3/uL (4.3-11.0)
[2023-01-15 08:50] LABS: ALBUMIN 4.3 GM/DL (3.2-4.5); BILIRUBIN,TOTAL 1.4 MG/DL (0.1-1.0); CALCIUM 9.9 MG/DL (8.5-10.1); CREATININE SERUM 1.05 MG/DL (0.60-1.30); POTASSIUM 3.4 MMOL/L (3.6-5.0); TOTAL PROTEIN 7.3 GM/DL (6.4-8.2)
[~2023-01-15 10:00] MED LIST changes: +CARV12.53 PO; +HEParin (CATH LAB) 2,000 ML IV ONE; +LIDOCAINE 1% INJ 20 ML VIAL ONE; +LISI20TA26 PO; +NS IV 1000 ML 1,000 ML IV SCH; +NS IV 1000 ML 1,000 ML ONE
[2023-01-15] MEDS ORDERED: fentaNYL INJ 100 MCG/2 ML AMP ONE (10:06)
[2023-01-15] MEDS ORDERED: MIDAZOLAM 5 MG/5 ML (VERSED) VIAL ONE (10:06)
[2023-01-15] MEDS ORDERED: LIDOCAINE 1% INJ 20 ML VIAL ONE (10:27)
--- NOTE | 2023-01-15 12:22 | Cardiac Procedure Note-CS/ASA ---
Pre-Procedure Note Pre-Op Procedure Note Date of Available H&P: Dec 24, 2022 Date H&P Reviewed: Jan 15, 2023 Time H&P Reviewed: 10:00 History & Physical: No changes noted Conscious Sedation Pre-Proced ASA Score 3 For ASA 3 and 4: Consider anesthesia and medical clearance. Also, for patients with a history of failed moderate sedation consider anesthesia. Airway Lungs Heart ASA score ASA 1: a normal healthy patient ASA 2: a patient with a mild systemic disease (mid diabetes, controlled hypertension, obesity ASA 3: a patient with a severe systemic disease that limits activity (angina, COPD, prior Myocardial infarction) ASA 4: a patient with an incapacitating disease that is a constant threat to life (CHF, renal failure) ASA 5: a moribund patient not expected to survive 24 hrs. (ruptured aneurysm) ASA 6: a declared brain- patient whose organs are being harvested. For emergent operations, add the letter E after the classification Mallampati Classification Grade 2 Sedation Plan Analgesia, Amnesia, Plan communicated to team members The patient is an appropriate candidate to undergo the planned procedure, sedation, and anesthesia. The patient immediately re-assessed prior to indication. JULIO SU MD FACP FAC CCDS Jan 15, 2023 12:22
--- NOTE | 2023-01-15 12:36 | Cardiac Cath Report ---
CARDIAC CATHETERIZATION DATE OF PROCEDURE: 01/15/23 INDICATION: Severe aortic stenosis HISTORY: See H&P PROCEDURES PERFORMED: 1. LHC 2. RHC 3. Aortic root angiography PROCEDURE DESCRIPTION: After informed consent and in the fasting state, left heart catheterization was performed through the R femoral artery artery utilizing a 5 Nepali system and right heart catheterization through the R femoral vein by percutaneous approach. Standard Ignacio catheters were utilized for the diagnostic portion of left heart catheterization and 7F Walcott-Raul for right heart catheterization. RESULTS: HEMODYNAMICS: PA: 25/14 mmHg PCWP: 6 (mean) mmHg RV: 26/3 mmHg RA: 2 (mean) mmHg Pulmonary vascular resistance: 2.82 Wood units Oxygen saturation measurements: no evidence of intracardiac shunt Thermodilution cardiac output: 3.28 l per min Thermodilution cardiac index: 2.54 l per min per sq. m LVEDP: not done (did not cross aortic valve) Ascending aortic pressure: 134/64 mmHg CORONARY ANGIOGRAPHY: Cor calcium present Left main coronary artery: Ok Left anterior descending coronary artery: Mild plaque Left circumflex coronary artery: Ok Right coronary artery: Not visualized. Presumed occluded IMPRESSION: 1. Normal right heart pressures without evidence of intracardiac shunt 2. 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
[2023-01-15] MEDS ORDERED: NS IV 1000 ML 1,000 ML IV SCH (13:00)
[2023-01-15] MEDS ORDERED: PATIENT MAY USE OWN MEDS, ALL PO SCH (13:00)
--- NOTE | 2023-01-15 13:10 | Discharge Inst-Post CATH ---
Discharge Inst-CATH/EP Post Cardiac Cath/EP D/C Inst Follow Up/Plan F/u with Dr Nj in 1-2 weeks ACTIVITY * Go Home directly and rest. * Limit activity of the leg (or wrist if it was used) for 7 days including aerobics, swimming, jogging, bicycling, etc. * Restrict stair-climbing for 7 days if possible, if not, climb up with your non-cath leg, then bring together on the same step. * Avoid lifting, pushing, pulling or excessive movement of the affected e xtremity for 7 days. * Customary sexual activity may be resumed after 2 days-use caution not to use a position that strains or causes pain to the affected extremity. * No driving for 24 hours. * NO SMOKING. * Avoid straining for bowel movements for 7 days. * Gentle walking on level ground is allowed. * Returning to work will depend on the type of procedure and the results. Your doctor will discuss this with you. CALL YOUR DOCTOR FOR ANY OF THE FOLLOWING: *If bleeding from the puncture site occurs- Apply gentle pressure to site with clean cloth and call your doctor or EMS. * If a knot or lump forms under the skin, increases in size, or causes pain. * If bruising appears to be worsening or moving further down your leg instead of disappearing. * Temperature above 101 F. CARE OF YOUR GROIN INCISION; * Bruising or purple discoloration of the skin near the puncture site is common. * You may shower only, no bathtub bathing for 5 days. Be careful to avoid slipping as your leg may feel stiff. * If a closure device was used on your femoral artery, please see the attached guide regarding care of the device and your leg. * Leave dressing on FOR 24 hours. CARE OF YOUR WRIST INCISION; * Bruising or purple discoloration of the skin near the puncture site is common. * You may shower. * DO NOT submerge wrist. * Leave dressing on FOR 24 hours. JULIO NJ MD FACP [facility] CCDS Jan 15, 2023 13:10
--- NOTE | 2023-01-15 13:10 | Discharge Inst-Cardiology ---
Discharge Inst-Cardiac Discharge Medications Continued Medications: Aspirin (Aspirin EC) 81 Mg Tablet.dr 81 MG PO DAILY, TAB Carvedilol (Carvedilol) 12.5 Mg Tablet 12.5 MG PO BID, TAB Lisinopril (Lisinopril) 20 Mg Tablet 20 MG PO DAILY, TAB LAST FILLED 08/22/2022 #90 90 DAY SUPPLY Vit A/Vit C/Vit E/Zinc/Copper (Preservision Areds Tablet) 2,148-113 Tablet 1 EACH PO DAILY, TAB JULIO SU MD FACP FAC CCDS Jan 15, 2023 13:10
== END 2023-01-15 16:35 | disposition home or self-care (01) ==
LOC: CATH 10:00 → SDC 12:58 → CATH 16:35
PROVIDERS: ATTEND Internal Medicine Cardiovascular Disease
DX: I35.0 Nonrheumatic aortic (valve) stenosis (principal); I25.10 Atherosclerotic heart disease of native coronary artery without angina pectoris; I44.2 Atrioventricular block, complete; I47.1 Supraventricular tachycardia; I12.9 Hypertensive chronic kidney disease with stage 1 through stage 4 chronic kidney disease, or unspecified chronic kidney disease; N18.31 Chronic kidney disease, stage 3a; I27.20 Pulmonary hypertension, unspecified; I34.0 Nonrheumatic mitral (valve) insufficiency; R09.89 Other specified symptoms and signs involving the circulatory and respiratory systems; R94.31 Abnormal electrocardiogram [ECG] [EKG]; Z95.0 Presence of cardiac pacemaker; Z79.899 Other long term (current) drug therapy
CPT/HCPCS: 80053; 80061; 85027; 85610; 85730; 87081; 93460; 93567; C1760; C1894 ×2; 36415

== ENCOUNTER → 2023-02-13 | Outpatient (CLI) | payer MEDICARE ==
[~2023-02-13] MED LIST changes: -HEParin (CATH LAB) 2,000 ML IV ONE; -LIDOCAINE 1% INJ 20 ML VIAL ONE; -NS IV 1000 ML 1,000 ML IV SCH; -NS IV 1000 ML 1,000 ML ONE
== END ==
LOC: CARD 12:00
PROVIDERS: ATTEND Nurse Practitioner
DX: I08.0 Rheumatic disorders of both mitral and aortic valves (principal)
CPT/HCPCS: 93306

== ENCOUNTER 2023-04-23 22:09 | Emergency (ER) | payer MEDICARE ==
[~2023-04-23] VITALS: Ht 145 cm; Wt 43.0 kg
--- NOTE | 2023-04-23 22:23 | ED General ---
General Chief Complaint: Abdominal/GI Problems Stated Complaint: UPPER ABD/BACK PAIN History of Present Illness Date Seen by Provider: Apr 23, 2023 Time Seen by Provider: 22:23 Initial Comments 87-year-old female presents with left upper back, left lower chest pain has been going on for 3 days. She reports been getting worse for last 3 days. Gets worse if she lays down temporarily little bit better if she sits up and then returns. She denies any injury. She denies any shortness of breath. Denies nausea vomiting fever or chills. Reports that she came in tonight because is just continue to get worse but over the last 24 to 36 hours. Allergies and Home Medications Allergies Coded Allergies: No Known Drug Allergies (Unverified , 06/10/16) Patient Home Medication List Home Medication List Reviewed: Yes Aspirin (Aspirin EC) 81 Mg Tablet.dr, 81 MG PO DAILY, (Reported) Entered as Reported by: SACHA DEMARCO on 01/15/23916 Carvedilol (Carvedilol) 12.5 Mg Tablet, 12.5 MG PO BID, (Reported) Entered as Reported by: SACHA DEMARCO on 01/15/23916 Ibuprofen (Ibuprofen) 600 Mg Tablet, 600 MG PO Q8H Prescribed by: JP JACOBO on 04/24/23 06 Lisinopril (Lisinopril) 20 Mg Tablet, 20 MG PO DAILY, (Reported) Entered as Reported by: SACHA DEMARCO on 01/15/23916 Vit A/Vit C/Vit E/Zinc/Copper (Preservision Areds Tablet) 2,148-113 Tablet, 1 EACH PO DAILY, (Reported) Entered as Reported by: SACHA DEMARCO on 01/15/23916 Review of Systems Review of Systems Constitutional: No chills, No fever EENTM: no symptoms reported Respiratory: no symptoms reported Cardiovascular: see HPI Gastrointestinal: see HPI Musculoskeletal: see HPI Skin: no symptoms reported Psychiatric/Neurological: No Symptoms Reported Past Fqrsios-Vkrylm-Uchgkq Hx Patient Social History Tobacco Use?: No Substance use?: No Alcohol Use?: No Pt feels they are or have been: No Seasonal Allergies Seasonal Allergies: No Past Medical History Surgery/Hospitalization HX: ppm/aicd, aortic valve insufficiency, murmer, htn Hypertension Reproductive Disorders: No Sexually Transmitted Disease: No Family Medical History No Pertinent Family Hx Physical Exam Vital Signs Vital Signs - First Documented 04/23/23 22:15 Temp 37.4 Pulse 80 Resp 18 B/P (MAP) 190/100 (130) Pulse Ox 95 O2 Delivery Room Air Capillary Refill : Height, Weight, BMI Height: 5'0.00" Weight: 86lbs. 10.0oz. 39.552106he; 21.75 BMI Method:Stated General Appearance: Thin, Other (frail ) Respiratory: Lungs Clear, Normal Breath Sounds Cardiovascular: Regular Rate, Rhythm, No Edema Gastrointestinal: Non Tender, Soft; No Guarding Extremity: Normal Capillary Refill Neurologic/Psychiatric: Alert, Oriented x3, Normal Mood/Affect Skin: Normal Color, Warm/Dry Progress/Results/Core Measures Suspected Sepsis SIRS Temperature: Pulse: Respiratory Rate: Laboratory Tests 04/23/23 22:30: White Blood Count 6.4 Blood Pressure / Mean: Laboratory Tests 04/23/23 22:30: Creatinine 0.95, Platelet Count 148, Total Bilirubin 0.9 Results/Orders Lab Results Laboratory Tests Test 04/23/23 22:30 Range/Units White Blood Count 6.4 4.3-11.0 10^3/uL Red Blood Count 4.27 3.80-5.11 10^6/uL Hemoglobin 13.8 11.5-16.0 g/dL Hematocrit 40 35-52 % Mean Corpuscular Volume 95 80-99 fL Mean Corpuscular Hemoglobin 32 25-34 pg Mean Corpuscular Hemoglobin Concent 34 32-36 g/dL Red Cell Distribution Width 12.9 10.0-14.5 % Platelet Count 148 130-400 10^3/uL Mean Platelet Volume 9.8 9.0-12.2 fL Immature Granulocyte % (Auto) 0 % Neutrophils (%) (Auto) 71 42-75 % Lymphocytes (%) (Auto) 13 12-44 % Monocytes (%) (Auto) 11 0-12 % Eosinophils (%) (Auto) 4 0-10 % Basophils (%) (Auto) 0 0-10 % Neutrophils # (Auto) 4.5 1.8-7.8 10^3/uL Lymphocytes # (Auto) 0.8 L 1.0-4.0 10^3/uL Monocytes # (Auto) 0.7 0.0-1.0 10^3/uL Eosinophils # (Auto) 0.3 0.0-0.3 10^3/uL Basophils # (Auto) 0.0 0.0-0.1 10^3/uL Immature Granulocyte # (Auto) 0.0 0.0-0.1 10^3/uL Sodium Level 141 135-145 MMOL/L Potassium Level 3.4 L 3.6-5.0 MMOL/L Chloride Level 106 98-107 MMOL/L Carbon Dioxide Level 22 21-32 MMOL/L Anion Gap 13 5-14 MMOL/L Blood Urea Nitrogen 16 7-18 MG/DL Creatinine 0.95 0.60-1.30 MG/DL Estimat Glomerular Filtration Rate 59 BUN/Creatinine Ratio 17 Glucose Level 104 70-105 MG/DL Calcium Level 9.0 8.5-10.1 MG/DL Corrected Calcium 9.1 8.5-10.1 MG/DL Magnesium Level 1.7 1.6-2.4 MG/DL Total Bilirubin 0.9 0.1-1.0 MG/DL Aspartate Amino Transf (AST/SGOT) 16 5-34 U/L Alanine Aminotransferase (ALT/SGPT) 12 0-55 U/L Alkaline Phosphatase 72 40-136 U/L Troponin I < 0.028 <0.028 NG/ML C-Reactive Protein High Sensitivity 0.06 0.00-0.50 MG/DL B-Type Natriuretic Peptide 152.8 H <100.0 PG/ML Total Protein 6.5 6.4-8.2 GM/DL Albumin 3.9 3.2-4.5 GM/DL Lipase 38 8-78 U/L My Orders Orders - JACOBO,JP L DO Ed Iv/Invasive Line Start (04/23/23 22:24) Ekg Tracing (04/23/23 22:24) Monitor-Rhythm Ecg Trace Only (04/23/23 22:24) Bnp Miguelangel (04/23/23 22:24) Cbc With Automated Diff (04/23/23 22:24) Comprehensive Metabolic Panel (04/23/23 22:24) Hs C Reactive Protein (04/23/23 22:24) Lipase (04/23/23 22:24) Magnesium (04/23/23 22:24) Troponin I [place] (04/23/23 22:24) Acute Abd Series (04/23/23 22:24) Ketorolac Injection (Toradol Injection) (04/23/23 23:22) Ct Abdomen/Pelvis W (04/23/23 23:22) Iohexol Injection (Omnipaque 350 Mg/Ml 1 (04/23/23 23:45) Received Contrast (Hold Metformin- Contr (04/23/23 23:45) Sodium Chloride Flush (Catheter Flush Sy (04/23/23 23:45) Ns (Ivpb) (Sodium Chloride 0.9% Ivpb Bag (04/23/23 23:45) Echo W Doppler/Color Flow (04/24/23 01:30) Medications Given in ED Vital Signs/I&O 04/23/23 04/24/23 22:15 06:03 Temp 37.4 37.2 Pulse 80 61 Resp 18 18 B/P (MAP) 190/100 (130) 153/82 Pulse Ox 95 95 O2 Delivery Room Air Room Air Capillary Refill : Progress Note : Progress Note Patient's diagnostic studies were ordered reviewed and interpreted by me. Patient has no concerning significant EKG findings. Patient CT was ordered, reviewed with final interpretation per radiology report. Radiology report did show a 12 mm pericardial effusion. Patient having symptoms of increased pain when she lays down with pericardial effusion on CT. A cardiac echo was obtained. Echo was reviewed by Dr. Quinn and discussed findings with him. At this time there was no concerning large pericardial effusion but a posterior fusion. Patient's symptoms likely due to pericarditis with her pain getting worse when she lays down and her pain completely resolved with Toradol. Patient's EKG shows paced rhythm with acute findings. Based on a diagnosis of acute pericarditis and discussion with Dr. Quinn will place her on ibuprofen 600 mg 3 times a day. She should follow-up on an outpatient basis with both her c ardiologist Dr. Chidi Walden and her primary care provider. Patient was stable and discharged home. ECG Initial ECG Impression Date: Apr 23, 2023 Initial ECG Impression Time: 22:25 Initial ECG Rate: 68 Comment Paced, no acute changes. Diagnostic Imaging Diagonstic Imaging: CT Plain Films/CT/US/NM/MRI: abdomen, pelvis Comments 12 mm pericardial effusion. No other significant abnormalities noted Departure Impression Primary Impression: Pericarditis Qualified Codes: I30.9 - Acute pericarditis, unspecified Additional Impressions: Pericardial effusion Severe aortic stenosis Disposition: HOME, SELF-CARE Condition: Stable Departure-Patient Inst. Referrals: NO,LOCAL PHYSICIAN (PCP/Family) Primary Care Physician Patient Instructions: Pericarditis in adults Add. Discharge Instructions: Please follow-up with Dr. Wong and your primary care provider in the next 7 to 10 days for recheck. Sooner if symptoms continue to worsen. All discharge instructions reviewed with patient and/or family. Voiced understanding. Scripts Ibuprofen (Ibuprofen) 600 Mg Tablet 600 MG PO Q8H, #30 TAB Prov: JP JACOBO DO 04/24/23 JP JACOBO DO Apr 23, 2023 22:23
[2023-04-23 22:47] LABS: BASOPHILS % (AUTO) 0 % (0-10); EOSINOPHILS # (AUTO) 0.3 10^3/uL (0.0-0.3); EOSINOPHILS % (AUTO) 4 % (0-10); HEMATOCRIT 40 % (35-52); HEMOGLOBIN 13.8 g/dL (11.5-16.0); LYMPHOCYTES # (AUTO) 0.8 10^3/uL (1.0-4.0); LYMPHOCYTES % (AUTO) 13 % (12-44); MEAN CORPUSCULAR HEMOGLOBIN 32 pg (25-34); MEAN CORPUSCULAR HGB CONC 34 g/dL (32-36); MEAN CORPUSCULAR VOLUME 95 fL (80-99); MEAN PLATELET VOLUME 9.8 fL (9.0-12.2); MONOCYTES # (AUTO) 0.7 10^3/uL (0.0-1.0); MONOCYTES % (AUTO) 11 % (0-12); NEUTROPHILS # (AUTO) 4.5 10^3/uL (1.8-7.8); NEUTROPHILS % (AUTO) 71 % (42-75); PLATELET COUNT 148 10^3/uL (130-400); WHITE BLOOD COUNT 6.4 10^3/uL (4.3-11.0)
[2023-04-23 22:56] LABS: ALBUMIN 3.9 GM/DL (3.2-4.5)
[2023-04-23 22:57] LABS: CHLORIDE 106 MMOL/L (98-107); POTASSIUM 3.4 MMOL/L (3.6-5.0); SODIUM 141 MMOL/L (135-145)
[2023-04-23 22:59] LABS: GLUCOSE 104 MG/DL (70-105); TOTAL PROTEIN 6.5 GM/DL (6.4-8.2)
[2023-04-23 23:00] LABS: CARBON DIOXIDE 22 MMOL/L (21-32)
[2023-04-23 23:01] LABS: BILIRUBIN,TOTAL 0.9 MG/DL (0.1-1.0)
[2023-04-23 23:02] LABS: ALKALINE PHOSPHATASE 72 U/L (40-136)
[2023-04-23 23:03] LABS: CREATININE SERUM 0.95 MG/DL (0.60-1.30); GFR ESTIMATED 59
[2023-04-23 23:04] LABS: BUN/CREATININE RATIO 17
[2023-04-23 23:05] LABS: MAGNESIUM 1.7 MG/DL (1.6-2.4)
[2023-04-23 23:06] LABS: ALANINE AMINOTRANSFERASE 12 U/L (0-55)
[2023-04-23 23:07] LABS: LIPASE 38 U/L (8-78)
[2023-04-23] MEDS ORDERED: KETOROLAC 30 MG/ML VIAL IVP STA (23:22)
[2023-04-23] MEDS ORDERED: IOHEXOL 350 MG/ML 100 ML (OMNIPAQUE 350) VIAL IV ONE (23:45)
[2023-04-23] MEDS ORDERED: CATHETER FLUSH 10 ML SYR IV PRN (23:45)
[2023-04-23] MEDS ORDERED: HOLD METFORMIN - RECEIVED CONTRAST 20 ML VIAL IV SCH (23:45)
[2023-04-23] MEDS ORDERED: NS 100 ML (IVPB) BAG IV ONE (23:45)
[2023-04-24] MEDS ORDERED: IBUP-1773 PO (06:01)
[2023-04-24 06:03] VITALS: BP 153/82
--- NOTE | 2023-04-24 08:08 | Diagnostic Imaging Report ---
EXAMINATION: CT abdomen and pelvis with intravenous contrast. TECHNIQUE: Multiple contiguous axial images were obtained through the abdomen and pelvis after the uneventful administration of intravenous contrast. All CT scans use one or more of the following dose optimizing techniques: automated exposure control, MA and/or KvP adjustment based on patient size and exam type or iterative reconstruction. HISTORY: Abdominal pain for 3 days. COMPARISON: None available. FINDINGS: The heart is enlarged with a moderate pericardial effusion. Small left-sided pleural effusion is seen. Bibasilar opacities are present. There is mild prominence of the pancreatic duct. No focal pancreatic lesions are seen. No peripancreatic inflammation. The liver, spleen, adrenal glands, and kidneys have a normal appearance. There is no pathologically enlarged mesenteric or retroperitoneal adenopathy. The bowel loops are nondilated. A large volume of stool seen in the colon. Small amount of free fluid is seen in the pelvis. There is no free air. No acute osseous abnormalities. There is grade 1 anterolisthesis of L4 on L5. Calcified aortic and iliac atherosclerotic plaque is seen without aneurysm. Ureters and bladder are grossly normal. There is no free air, loculated collection, or adenopathy in the pelvis. IMPRESSION: 1. Large volume of stool in the colon, suggestive of constipation. 2. Mildly prominent pancreatic duct. No focal pancreatic lesions are seen. Recommend correlation with laboratory values and if indicated liver gallbladder ultrasound and/or MRCP to further characterize. 3. Cardiomegaly with moderate pericardial effusion. 4. Small left-sided pleural effusion with bibasilar opacities. Findings may represent atelectasis and/or infection. 5. Nonspecific small amount of free fluid in the pelvis. Findings of constipation and prominence of the pancreatic duct were not included on the preliminary report. Otherwise, agree preliminary report. Report was faxed and called to Dr. [facility] , by lelo at 8:05AM. Dictated by: Dictated on workstation # [id number]
--- NOTE | 2023-04-24 08:08 | Diagnostic Imaging Report ---
EXAMINATION: Abdominal series and chest radiograph HISTORY: abd pain COMPARISON: None available. FINDINGS: Heart size is normal. A left-sided cardiac device is present. The lungs are clear without consolidation, pleural effusion, or pneumothorax. The osseous structures are intact. There is moderate amount of gas and stool throughout the colon. Nonobstructive bowel gas pattern. No radiopaque foreign body. The osseous structures are intact. IMPRESSION: No acute abnormality in the chest or abdomen. Dictated by: Dictated on workstation # [id number]
== END 2023-04-24 06:07 | disposition home or self-care (01) ==
LOC: EDUNIT# 22:09 → ER 22:12
DX: I31.9 Disease of pericardium, unspecified (principal); I31.39 Other pericardial effusion (noninflammatory); I35.0 Nonrheumatic aortic (valve) stenosis
CPT/HCPCS: 36415; 74022; 74177; 80053; 83690; 83735; 83880; 84484; 85025; 86141; 93005; 93041; 93306

== ENCOUNTER → 2023-05-23 | Outpatient (CLI) | payer MEDICARE ==
[~2023-05-23] MED LIST changes: +IBUP-1773 PO
== END ==
LOC: CARD 14:00
PROVIDERS: ATTEND Nurse Practitioner Family
DX: I08.0 Rheumatic disorders of both mitral and aortic valves (principal); I31.39 Other pericardial effusion (noninflammatory)
CPT/HCPCS: 93306